=== PATIENT | female | born 1990 | race Native Hawaiian/Other Pacific Islander ===

== ENCOUNTER 2017-12-16 17:49 | Inpatient (IN) | payer BC, OTHER ==
[2017-12-16 18:02] VITALS: BMI 24.2
[2017-12-16] MEDS ORDERED: Lactated Ringer's 1,000 ML IV SCH (18:45)
--- NOTE | 2017-12-16 19:17 | OBADHP ---
Datetime: 12/16/2017 19:12 Admit Comment, IP Provider: 27 yo G1 at 40+4 wks for induction of labor for post-dates. NST reactive. GBS negative. Will place cervidil to start induction. H_P dictated, "[id number]" (ES) Extremities - PN: Normal Abdomen - PN: Normal Back - PN: Normal Heart - PN: Normal Neurologic - PN: Normal General - PN: Normal FHR - Baseline A Provider: 130's Membranes, Provider: Intact Vital Signs Provider: Reviewed IP Chief Complaint: Scheduled induction of labor NICHD Variability Prov Fetus A: Moderate 6-25bpm NICHD Accel Fetus A IP Provider: 15X15 FHR Category Provider Fetus A: Category I NICHD Decel Fetus A IP Provider: None Dilatation, Provider: 1 Effacement, Provider: 70 Station, Provider: -1 Genitourinary Exam: Normal EGA AdmitDate IP: 40.4 IP Adm Impression: Postterm, intrauterine IP Admit Plan: Initiate labor induction protocol
[2017-12-16 19:19] LABS: BASO % 0.1 % (0.0-2.0); EOS % 0.1 % (0.0-4.0); HEMOGLOBIN 12.1 g/dL (12.0-16.0); LYMPH % 10.7 % (20.0-40.0); MEAN CELL VOLUME 82.3 fl (81.0-99.0); MEAN CORPUSCULAR HEMOGLOBIN 26.3 pg (27.0-31.0); MEAN PLATELET VOLUME 10.4 fl (7.2-11.7); MONO # 0.5 K/uL (0.0-0.8); MONO % 5.5 % (0.0-10.0); NEUT # 7.5 K/uL (1.8-7.0); NEUT % 83.6 % (50.0-75.0); RBC 4.58 Mil/uL (3.80-5.20); RED CELL DISTRIBUTION WIDTH 14.8 % (11.5-14.5); WHITE BLOOD COUNT 8.9 K/uL (4.8-10.8)
--- NOTE | 2017-12-16 21:17 | HP ---
HISTORY OF PRESENT ILLNESS: This is a 27-year-old G1 at 40 weeks and 4 days with an EDC of 12/12/2017 by LMP who presents for induction of labor for postdates. The patient's reports that the patient has had some soft stools, one early in the morning and two soft stools today. The patient reports that she started having abdominal pain at midnight. The patient reports that she is having pain with eating or drinking since this morning. She denies contractions, vaginal bleeding, leaking of fluids, and reports positive movement. The patient had her care with Dr. Sharma at [facility]. PAST MEDICAL HISTORY: Healthy. PAST SURGICAL HISTORY: None. MEDICATIONS: vitamins. ALLERGIES: NO KNOWN DRUG ALLERGY. FAMILY HISTORY: Mother with hypertension. SOCIAL HISTORY: The patient denies tobacco, alcohol, or illicit drug use. GYNECOLOGIC HISTORY: Menarche at 11. The patient reports regular periods. She denies a history of sexually transmitted diseases and denies abnormal Pap smears. LABS: On 04/17/2017, blood type is A positive. Antibody screen negative. On 05/02/2017, HIV was nonreactive. [facility] screen was negative for 4/4 diseases, which were cystic fibrosis, Duchenne muscular dystrophy, fragile X, and spinal muscular atrophy. Hemoglobin electrophoresis was within normal limits. Urine culture was negative. RPR was nonreactive. Rubella was positive. Hepatitis B surface antigen negative. On 05/15/2017, gonorrhea and chlamydia were negative. On 06/04/2017, Panorama with low-risk male fetus and first trimester screen was within range. On 07/10/2017, maternal AFP was negative. On 09/26/2017, HIV was negative. One -hour Glucola was 103. RPR was nonreactive. On 11/20/2017,group B Strep culture was negative. PHYSICAL EXAMINATION: GENERAL: Afebrile. VITAL SIGNS: Stable. HEART: Regular rate and rhythm. CHEST AND LUNGS: Clear to auscultation bilaterally. ABDOMEN: Soft, nontender, and gravid. EXTREMITIES: Nontender. GENITOURINARY: Vaginal exam is 1 cm dilated, 70% effaced, and -1 station at 6:08 p.m. EXTERNAL MONITORING: The baseline is in the 130s with moderate variability and positive accelerations. Tocodynamometer: uterine irritability ASSESSMENT AND PLAN: This is a 27-year-old G1 at 40 weeks and 4 days for an induction of labor with Cervidil for postdates. nonstress test is reactive. Group B Streptococcus is negative. Sylwia Velazquez MD MTDD
[2017-12-17] MEDS ORDERED: Nalbuphine 20 mg/ml Inj (1 ml) IVP ONE (04:30)
[2017-12-17] MEDS: Lactated Ringer's 1,000 ML IV SCH ×2 (09:00→10:15)
[2017-12-17] MEDS ORDERED: Nalbuphine 20 mg/ml Inj (1 ml) IVP PRN (09:10)
[2017-12-17] MEDS ORDERED: Oxytocin 30 UNITS in Sodium Chloride 0.9% 500 ML IV SCH (09:15)
[2017-12-17] MEDS ORDERED: Bupivacaine HCl 0.25% PF (10 ml) Inj ONE (10:05)
[2017-12-17] MEDS ORDERED: Phenylephrine 10 mg/ml Inj ONE (10:06)
[2017-12-17] MEDS ORDERED: Fentanyl/Bupivacaine HCl 250 ML EPI ONE (10:40)
--- NOTE | 2017-12-17 13:37 | OBPN ---
Datetime: 12/17/2017 13:34 IP Progress Impression: Normal progression of labor IP Informed Consent Obtain: Vaginal Delivery IP Procedures: Sterile Vag Exam IP Progress Plan: Continue present management Membranes, Provider: Ruptured Amniotic Fluid Color, Provider: Meconium, Light Contraction Comments Provider: q 3-4 mins FHR - Baseline A Provider: 155 IP Progress Note Comment: Patient evaluated, comfortable. VE=50/-1 BTY=803 mod danielle, +accels, no decels TOCO = q 3-4 mins A/P 1. Patient progressing well. Patient had a late deceleration with recovery, now has FHR = 155 mod danielle, no decels, pratima q 3-4 mins. Will restart Pitocin now that FHR has recovered 2.CEFM and TOCO 3. Re-evaluate as needed Vital Signs Provider: Reviewed; Within Normal Limits NICHD Variability Prov Fetus A: Moderate 6-25bpm Dilatation, Provider: 6 Effacement, Provider: 50 Station, Provider: -1 NICHD Decel Fetus A IP Provider: Early Datetime: 12/16/2017 19:12 NICHD Accel Fetus A IP Provider: 15X15 FHR Category Provider Fetus A: Category I
--- NOTE | 2017-12-17 15:05 | OBPN ---
Datetime: 12/17/2017 15:01 IP Progress Impression: Normal progression of labor IP Informed Consent Obtain: Vaginal Delivery IP Procedures: Sterile Vag Exam IP Progress Plan: Continue present management Contraction Comments Provider: q 2 mins FHR - Baseline A Provider: 150 IP Progress Note Comment: Patient evaluated, feeling increased pressure VE=7/100/0 GYC=922 mod danielle, variable decels TOCO = pratima q 2 mins, Pitocin @ 4 mu/min A/P 1. Continue Pitocin for augmentation 2. CEFM and TOCO 3. Re-evaluate as needed Vital Signs Provider: Reviewed; Within Normal Limits NICHD Variability Prov Fetus A: Moderate 6-25bpm Dilatation, Provider: 7 Effacement, Provider: 100 Station, Provider: 0 NICHD Decel Fetus A IP Provider: None; Variable
--- NOTE | 2017-12-17 22:55 | OBDS ---
DELIVERY PERSONNEL Delivery Doctor: Claudia Sharma MD Chef De Partie: Violeta Street RN Anesthesiologist: Silverio Valencia MD MATERNAL INFORMATION Delivery Anesthesia: Epidural Medications in Delivery: pitocin 30 units in 500 ml lr Estimated Blood Loss (ml): 150 Placenta Cultured: Yes Maternal Complications: None RN Comments: Vaginal packin g placed post delivery to be removed by dr sharma next day AM Provider Comments: of live male over intact perineum 8lbs 5oz, 9/9, followed by shoulder s and rest of infant, mouth and nose suctioned, cord clamped and cut, cord blood obtained, placenta d elivered spontaneously, fundus firm, PYS=[id number], 2nd degree laceration delivered with 2-0 vicryl rapid e, pt tolerated procedure well LABOR SUMMARY EDC: 12/12/2017 00:00 No. Babies in Womb: 1 Attempted: No Labor Anesthesia: Epidural LABOR INFORMATION Reason for Induction: Postterm Onset of Labor: 12/17/2017 13:28 Complete Dilatation: 12/17/2017 16:40 Cervical Ripening Agents: Cervidil Oxytocin: Augmentation Group B Beta Strep: Negative Steroids Given: None Reason Steroids Not Administered: Not Applicable MEMBRANES Membranes Rupture Method: Spontaneous Rupture of Membranes: 12/17/2017 13:28 Length of Rupture (hrs): 5.38 Amniotic Fluid Color: Clear Amniotic Fluid Amount: Moderate Amniotic Fluid Odor: Normal STAGES OF LABOR Stage 1 hrs: 3 Stage 1 min: 12 Stage 2 hrs: 2 Stage 2 min: 11 Stage 3 hrs: 0 Stage 3 min: 4 Total Time in Labor hrs: 5 Total Time in Labor min: 27 VAGINAL DELIVERY Episiotomy: None Laceration Extension: Second Degree Laceration Type: Vaginal Laceration Repair: Yes Initial Vag Sponge Count: 15 Final Vag Sponge Count: 15 Initial Vag Sharps Count: 2 Final Vag Sharps Count: 2 Sponge Count Correct: Yes Sharps Count Correct: Yes BABY A INFORMATION Infant Delivery Date/Time: 12/17/2017 18:51 Method of Delivery: Vaginal Born in Route : No : N/A Forceps: N/A Vacuum Extraction: N/A Shoulder Dystocia : No SHOULDER DYSTOCIA BABY A Infant Delivery Date/Time: 12/17/2017 18:51 PRESENTATION/POSITION BABY A Presentation: Cephalic Cephalic Presentation: Vertex Breech Presentation: N/A PLACENTA INFORMATION BABY A Placenta Delivery Time : 12/17/2017 18:55 Placenta Method of Delivery: Spontaneous Placenta Status: Delivered SCORES BABY A Heart Rate 1 min: >100 bpm Resp Effort 1 min: Good Cry Reflex Irritability 1 min: Cough or Sneeze or Pulls Away Muscle Tone 1 min: Active Motion Color 1 min: Body [place], Extremities Blue Resuscitation Effort 1 min: N/A SCORE 1 MIN: 9 Heart Rate 5 min: >100 bpm Resp Effort 5 min: Good Cry Reflex Irritability 5 min: Cough or Sneeze or Pulls Away Muscle Tone 5 min: Active Motion Color 5 min: Body [place], Extremities Blue Resuscitation Effort 5 min: N/A SCORE 5 MIN: 9 INFORMATION BABY A Gestational Age at Delivery: 40.5 Gestational Status: Post-term Outcome : Liveborn Infant Condition : Stable Infant Sex: Male WEIGHT/LENGTH BABY A Birthweight (gms): 3785 Weight (lb): 8 Weight (oz): 5 CORD INFORMATION BABY A No. Cord Vessels: 3 Nuchal Cord : Around Neck x1, Loose Cord Blood Taken: Yes Infant Suction: Mouth; Nose ASSESSMENT BABY A Infant Complications: Multiple Late Decels; Meconium Physical Findings at Delivery: Within Normal Limits Respirations: Appears Normal Drain Layer/ALS Called : Yes Infant Care By: Dr Hernandez/Mary marie
[2017-12-18 06:54] LABS: BASO % 0.2 % (0.0-2.0); EOS % 0.1 % (0.0-4.0); HEMOGLOBIN 10.3 g/dL (12.0-16.0); LYMPH # 1.8 K/uL (1.0-4.3); LYMPH % 13.9 % (20.0-40.0); MEAN CELL VOLUME 82.8 fl (81.0-99.0); MEAN CORPUSCULAR HEMOGLOBIN 26.1 pg (27.0-31.0); MEAN CORPUSCULAR HGB CONC 31.6 g/dL (33.0-37.0); MEAN PLATELET VOLUME 10.2 fl (7.2-11.7); MONO % 7.7 % (0.0-10.0); NEUT # 9.9 K/uL (1.8-7.0); NEUT % 78.1 % (50.0-75.0); RBC 3.93 Mil/uL (3.80-5.20); RED CELL DISTRIBUTION WIDTH 14.7 % (11.5-14.5); WHITE BLOOD COUNT 12.7 K/uL (4.8-10.8)
[2017-12-18] MEDS: Benzocaine/Menthol SPRAY TOP PRN ×2 (08:53→17:00)
[2017-12-18] MEDS ORDERED: Oxycodone/Acetaminophen 5/325 mg Tab PO PRN (18:34)
[2017-12-18] MEDS ORDERED: Anusol Suppository PR PRN (18:35)
--- NOTE | 2017-12-18 21:22 | OBPPN ---
Datetime: 12/18/2017 21:18 PP Pain Prov: Within normal limits PP Nausea Prov: Denies PP Flatus Prov: Yes PP BM Prov: Yes PP Breasts Prov: Normal PP Heart Prov: Normal PP Lungs Prov: Normal PP Abdomen/Uterus Prov: Normal PP Lochia Prov: Normal PP Vulva/Perineum Prov: Abnormal PP CVA Tenderness Prov: Normal PP Extremities Prov: Normal PP Progress Prov: Normal PP Comments Phys Exam Prov: swollen perineum; hemorroids PP Impression Prov: Normal progression PP Plan Prov: Continue present management PP Progress Note Prov: A: PPD 1 PLAN: earlier today vaginal packing removed; stressed to use ice to decrease swelling Vital Signs Provider PP: Reviewed; Within Normal Limits
--- NOTE | 2017-12-19 08:58 | OBPPN ---
Datetime: 12/19/2017 08:55 PP Pain Prov: Within normal limits PP Nausea Prov: Denies PP Flatus Prov: Yes PP Breasts Prov: Not Done PP Heart Prov: Normal PP Lungs Prov: Normal PP Abdomen/Uterus Prov: Normal PP Lochia Prov: Not Done PP Vulva/Perineum Prov: Not Done PP CVA Tenderness Prov: Normal PP Extremities Prov: Normal PP C/S Incision Prov: Normal PP Impression Prov: Normal progression PP Plan Prov: Discharge PP Progress Note Prov: Patient did well ambulating voiding without difficulty reports minimal lochia Vital signs stable afebrile Uterus firm below the umbilicus Extremities no Homans day #2 Patient cleared for discharge Follow-up PMD Nothing per vagina Motrin as needed
--- NOTE | 2017-12-19 08:58 | OBDCSUM ---
Datetime: 12/19/2017 08:56 Discharged to, Provider: Home Follow up at, Provider: [facility] Disch Instr Activity: Normal activity Disch Instr Diet: Regular Discharge Instructions, Provider: Routine instructions given Discharge Diagnosis, Provider: Term Delivered Follow up in weeks, Provider: 6 weeks Disch Referrals: None Contraception discussed, Prov: Yes Disch Activity Restrictions: No exercising; No lifting; No sexual activity; Nothing in vagina - Inte rcourse, tampons, douche Discharge Comment, Provider: For discharge Contraception after Delivery: Undecided
[2017-12-19 18:12] VITALS: BP 122/80; PULSE 104; RESP 20; TEMP 98.5; O2SAT 98
== END 2017-12-19 12:50 | disposition home or self-care (01) | DRG 775 ==
LOC: H.L&D 18:34 → H.OB/GYN 12-18
PROVIDERS: ADMIT Obstetrics & Gynecology; ATTEND Obstetrics & Gynecology
PROC: 4A1HXCZ Monitoring of Products of Conception, Cardiac Rate, External Approach (ICD-10-PCS; 2017-12-16)
PROC: 10E0XZZ Delivery of Products of Conception, External Approach (ICD-10-PCS; principal; 2017-12-17)
PROC: 0KQM0ZZ Repair Perineum Muscle, Open Approach (ICD-10-PCS; 2017-12-17)
PROC: 3E0P7VZ Introduction of Hormone into Female Reproductive, Via Natural or Artificial Opening (ICD-10-PCS; 2017-12-17)
DX: O48.0 Post-term pregnancy (principal); O69.81X0 Labor and delivery complicated by cord around neck, without compression, not applicable or unspecified; O70.1 Second degree perineal laceration during delivery; O76 Abnormality in fetal heart rate and rhythm complicating labor and delivery; O77.0 Labor and delivery complicated by meconium in amniotic fluid; Z37.0 Single live birth; Z3A.40 40 weeks gestation of pregnancy